=== PATIENT | female | born 1985 | race Caucasian/White ===

== ENCOUNTER 2019-07-12 09:28 | Day surgery (SDC) | payer BC ==
[2019-06-29 12:46] VITALS: BMI 18.2
[2019-07-12] MEDS ORDERED: PROPOFOL 20 ML ONE (10:07)
[2019-07-12] MEDS ORDERED: MIDAZOLAM HCL 2 MG/2 ML SINGLE DOSE VIAL ONE ×2 (10:07→11:51)
[2019-07-12] MEDS ORDERED: LIDOCAINE HCL 2% (20ML MULTI-DOSE VIAL) NR ONE (10:39)
[2019-07-12] MEDS ORDERED: BUPIVACAINE HCL 0.25% 125 MG/50 ML VIAL ONE (10:39)
[2019-07-12] MEDS ORDERED: DEXAMETHASONE SOD PHOSPHATE 4 MG/1 ML VIAL ONE (11:59)
[2019-07-12] MEDS ORDERED: ONDANSETRON 4 MG/2 ML VIAL ONE (11:59)
[2019-07-12] MEDS ORDERED: LIDOCAINE HCL 2% (50ML VIAL) INF ONE (12:00)
[2019-07-12] MEDS ORDERED: GUM MASTIC/STORAX/MSAL/ALCOHOL 1 DRP DROPSBTL MC ONE (12:08)
[2019-07-12] MEDS ORDERED: oxyCODONE HCL 5 MG TABLET PO PRN ×2 (13:41)
[2019-07-12] MEDS ORDERED: ACETAMINOPHEN 325 MG TABLET (FP) PO PRN (13:41)
[2019-07-12] MEDS ORDERED: ONDANSETRON 4 MG/2 ML VIAL IVPUSH PRN (13:41)
[2019-07-12] MEDS ORDERED: LACTATED RINGERS SOLUTION 1,000 ML IV SCH (13:45)
[2019-07-12 13:52] VITALS: BP 104/64; PULSE 65; TEMP 97.9
--- NOTE | 2019-07-14 16:30 | PATH ---
Surgical Pathology Report Patient Name: ROBBIN HALL [facility]. Rec. #: [id number] /Age/Gender: 1985 (Age: 33) / F Account: [id number] Location: [facility] AMBULATORY Taken: 07/12/2019 Received: 07/12/2019 Reported: 07/14/2019 Physicians: Bebeto Lee M.D. Specimen(s) Received LEFT WRIST MASS Clinical History Left wrist mass Final Diagnosis WRIST, LEFT, MASS, EXCISION: GANGLION CYST. Electronically Signed Eva Ugalde M.D. Gross Description Received in formalin, labeled "left wrist mass" is one piece of glistening, white, fibrous appearing tissue. Entirely submitted in one cassette.
--- NOTE | 2019-07-17 19:35 | OP ---
DATE OF OPERATION: 07/12/2019 PREOPERATIVE DIAGNOSIS: Left wrist mass. POSTOPERATIVE DIAGNOSIS: Left wrist mass. OPERATIVE PROCEDURE: Left wrist mass excision. SURGEON: Bebeto Lee MD APPLICATION PACKAGING CONSULTANT: DASHAWN Whitaker ANESTHESIA: General. COMPLICATIONS: None. ESTIMATED BLOOD LOSS: Minimal. INDICATION FOR PROCEDURE: The patient is a 33-year-old female with the above finding indicated for operative treatment. Risks, benefits, and alternatives were discussed with patient at length. Proper informed consent was obtained. PROCEDURE: After proper identification of patient and correct operative site, patient brought to the operating room, placed supine on the table. All bony prominences were well padded. General anesthesia was provided by the anesthesiologist and adequate for the procedure. Left upper extremity was prepped and draped in usual sterile fashion. A well-padded tourniquet was placed as well as a sterile prep. A longitudinal incision was made over the dorsal ulnar aspect of the wrist which was in line with the patient's mass. Incision was taken sharply through the skin, with blunt and sharp dissection through the subcutaneous tissues. Mass was identified as a cystic structure emanating off the fifth dorsal compartment sheath. It was excised in whole and sent for pathological evaluation. Wound was irrigated and repaired with 4-0 Vicryl and 4-0 Monocryl suture. Steri-Strips, sterile dressings were placed. Patient was reversed from anesthesia and brought to recovery in stable condition. She tolerated the procedure well. Christopher LOVE/[id number]
== END 2019-07-12 13:52 | disposition home or self-care (01) ==
LOC: FASU 09:28
PROVIDERS: ATTEND Orthopaedic Surgery Hand Surgery
PROC: 0LB60ZZ Excision of Left Lower Arm and Wrist Tendon, Open Approach (ICD-10-PCS; principal; 2019-07-12 12:07)
DX: M67.432 Ganglion, left wrist (principal)
CPT/HCPCS: 84703; 88304-TC